=== PATIENT | male | born 1975 | race Caucasian/White ===

== ENCOUNTER 2016-11-20 10:33 | Emergency (ER) | payer SELFPAY ==
--- NOTE | ~2016-11-20 | ER ---
ADMIT: 11/20/2016 RM/LOC: ER [facility] MR#: [id number] [address] [id number] MARIA TERESA MELCHOR [address] [place] [address] Emergency Room Report SEX: M AGE: 41 : 1975 DATE: 11/20/2016 ADDENDUM: This patient comes to the ER because he has pain in his left foot that he has had for the last few months. He also has pain in his low back and pain in his shoulder which are also chronic pain. He comes to the ER because he just wants to know what is causing him this pain and because he is starting on a new job tomorrow, and he would like pain medicine to help him get through his new job. On physical exam, the area that concerns him the most is his left heel. I see no swelling or bruising anywhere on his heel. He does have appeared to be able to palpate a small spur. No signs of infection. He walked into the ER and gets in and out of sitting position without any difficulty. DIAGNOSIS: Chronic pain. I wrote a prescription. He was given Toradol in the ER, and I wrote a prescription for meloxicam, and he is to follow up with his primary. Please see my T-sheet. ETHEL Brown / Herrera Ortega MD / salinasl JOB #: [id number] CC: Herrera Ortega MD, Attending Physician Maureen Buitrago MD, Family Physician
== END 2016-11-20 11:00 | disposition home or self-care (01) ==
LOC: ER 10:33
DX: G89.29 Other chronic pain (principal); M54.5 Low back pain; M25.512 Pain in left shoulder; M79.672 Pain in left foot; F41.9 Anxiety disorder, unspecified; F32.9 Major depressive disorder, single episode, unspecified; I10 Essential (primary) hypertension; Z79.899 Other long term (current) drug therapy